=== PATIENT | female | born 1980 | race Caucasian/White ===

== ENCOUNTER 2019-06-15 19:24 | Emergency (ER) | payer MEDICAID, SELFPAY ==
[2019-06-15 19:25] VITALS: BP 105/77; PULSE 60; RESP 18; TEMP 36.7; O2SAT 100; BMI 28.0
[2019-06-15] MEDS: Ondansetron 4 MG/2 ML Vial IV (22:05)
[2019-06-15] MEDS: 0.9% Normal Saline 1,000 ML 1000 ML IV (22:05)
[2019-06-15 22:14] LABS: Absolute Lymphocyte Count 2.79 X10^3/uL (0.83-4.51); Absolute Neutrophil Count 5.3 X10^3/uL (2.0-7.7); Basophil# 0.03 X10^3/uL; Basophil% 0.3 % (0-1); Eosinophil# 0.31 X10^3/uL; Eosinophils% 3.4 % (0-5); Hematocrit 40.6 % (37-47); Hemoglobin 13.5 g/dL (12.0-15.0); Lymphocyte # 2.79 X10^3/ul (4.0); Lymphocyte % 30.3 % (19-41); Mean Corp Hgb Conc 33.3 g/dL (32-36); Mean Corpuscular Hgb 32.4 pg (27.0-32.0); Mean Corpuscular Volume 97.4 fL (81-99); Monocyte# 0.78 X10^3/uL; Monocyte% 8.5 % (0-10); NRBC Flagged by Analyzer 0 % (0-5); Neutrophil # 5.28 X10^3/uL (2.7-7.7); Neutrophil % 57.2 % (47-70); Platelet Count 207 K/mm3 (150-450); RBC Distribution Width SD 43.5 fl (35.1-43.9); Red Blood Count 4.17 M/mm3 (4.2-5.4); White Blood Count 9.2 K/mm3 (4.4-11.0)
[2019-06-15 22:34] VITALS: RESP 18
[2019-06-15 22:53] LABS: Internal QC Validated? YES +Cl - CLEAR BKGD; Pregnancy, Serum, hCG Quali. NEGATIVE Negative
[2019-06-15 22:58] LABS: ALB/GLOB Ratio 1.1 RATIO (0.9-2.4); AST(SGOT) 22 U/L (15-37); Alanine Aminotransfer ALT/SGPT 31 U/L (13-56); Albumin, Serum 3.7 g/dL (3.2-5.0); Alkaline Phosphatase 95 U/L (45-117); Anion Gap 5 (5-15); BUN 13 mg/dL (7-18); BUN/Creat Ratio 18.5 RATIO (10-20); Calcium,Total 8.5 mg/dL (8.5-10.1); Chloride 106 mmol/L (98-107); EST Glomerular Filtration Rate 98 mL/min (>60); Est Glom Filt Rate - Afr Amer 119 mL/min (>60); Estimated Creatinine Clearance 104.93 ml/min; Globulin 3.5 g/dL (2.2-4.2); Glucose 88 mg/dL (74-106); Lipase 113 U/L (73-393); Protein, Total 7.2 g/dL (6.4-8.2); Sodium Level 140 mmol/L (136-145)
--- NOTE | 2019-06-15 23:17 | RAD_ITS ---
STUDY: X-RAY - ABDOMEN/PELVIS REASON FOR EXAM: Female, 38 years old. Left lower quadrant pain x2 days TECHNIQUE: Two portable AP supine views of the abdomen and pelvis. COMPARISON: None. FINDINGS: Normal visualized lung bases. There is an unremarkable bowel gas pattern. There is no demonstrated free abdominal air. The visualized liver, spleen and kidneys are grossly normal in size and morphology. Normal soft tissue structures. Normal visualized osseous structures. Intrauterine device projected over the pelvic midline. RAD/Abdomen Single View (Portable) IMPRESSION: Normal x-ray examination of the abdomen and pelvis. Electronically Signed: Maddi Ernandez MD at 23:42 EST , Service support ,
--- NOTE | 2019-06-16 00:05 | ED.DEP ---
ED Disposition - Plan for ED Patient: Instructions: ABDOMINAL PAIN, Unknown Cause, (Female) Prescriptions: Ondansetron [Zofran Odt] 4 mg PO Q8H PRN PRN #10 tablet PRN Reason: Nausea Referrals: Sherif Herron MD [Primary Care Provider] -
--- NOTE | 2019-06-16 00:08 | ED.VISSUMM ---
- ER Visit Summary Date of Service: 06/16/19 Chief Complaint: Abdominal pain History of Present Illness: The patient is a 38 F presenting with intermittent abdominal pain. She states this started on Wednesday. She states this started after eating hamburger and she was unsure if this was related to food poisoning. She has had nausea and vomiting x3. She denies diarrhea. She has had constipation. She denies urinary complaints. Denies possibility of . Denies fever. She has a history of C. difficile but denies any diarrhea. Physical Examination: Vitals are stable. Patient is afebrile. Alert no acute distress. HEENT exam is unremarkable. Neck is supple. Lungs are clear and equal bilaterally. Heart is regular rate and rhythm. Abdomen is soft nontender nondistended. No guarding or rebound Extremities are unremarkable. Skin is warm and dry. No focal neurologic deficit. Remainder of exam is unremarkable. Emergency Department Course and Treatment: Patient was given IV fluids, Zofran. CBC, chemistries unremarkable. Liver lipase are normal. hCG negative. On reevaluation, patient is mostly concerned about constipation. KUB was performed and is normal. She refused rectal exam. Her abdomen continues to be soft and nontender. She was given mag citrate for home. She is advised to follow-up with primary care physician. Advised return to ED for worsening complaints. Disposition: Discharge home Impression: Abdominal pain, constipation This note was generated with [employer] dictation software. It may contain incorrect words, spelling, and punctuation that were not noted in review of the chart prior to signing ED Disposition - Plan for ED Patient: Instructions: ABDOMINAL PAIN, Unknown Cause, (Female) Prescriptions: Ondansetron [Zofran Odt] 4 mg PO Q8H PRN PRN #10 tab PRN Reason: Nausea Prescription Printed Referrals: Sherif Herron MD [Primary Care Provider] -
[2019-06-16] MEDS: Magnesium Citrate 300 ML PO (00:21)
[2019-06-16 00:24] VITALS: BP 102/58; PULSE 56; RESP 16; O2SAT 97
== END 2019-06-16 00:25 | disposition home or self-care (01) ==
PROVIDERS: Emergency Provider Emergency Medicine; Family Provider Family Medicine; PCP Family Medicine
DX: K59.00 Constipation, unspecified (principal); R10.9 Unspecified abdominal pain
CPT/HCPCS: 74018; 80053; 83690; 84703; 85025; 96361; 96374; 99284; J7030; J2405

== ENCOUNTER 2019-12-11 08:31 | Emergency (ER) | payer MEDICAID, SELFPAY ==
[2019-12-11 08:32] VITALS: BP 112/89; PULSE 71; RESP 19; TEMP 36.4; O2SAT 100; BMI 29.7
--- NOTE | 2019-12-11 08:54 | ED.VIS.GEN ---
History of Present Illness Chief Complaint: Back Informant: Patient Onset: Yesterday Current Severity: Moderate Maximum Severity: Severe Narrative: Patient has been working physically quite a bit recently, she got her pool ready for the summer, she went back to work and she went back to working out after a few months off. She was bending down yesterday when she got back up she felt pain in her lower back. The pain radiates to the back of both legs, she does not have any bowel or bladder compromise she does not have urinary retention symptoms, she does not have saddle anesthesia. She has no fever chills or any other injury. Past Medical History - Allergies and Home Meds Allergies/Adverse Reactions: Allergies No Known Allergies Allergy (Verified 12/11/19 08:35) Primary Care Physician: Sherif Herron MD [Primary Care Provider] - Past Medical History: None Surgical History: no surgical history, - - D+C Smoking Status: Never smoker Review of Systems All systems negative except as indicated General: Denies: Fever Cardiovascular: Denies: Chest pain Respiratory: Denies: Dyspnea Gastrointestinal: Denies: Abdominal pain, Nausea Musculoskeletal: Reports: Back pain Skin: Denies: Rash Neurological: Denies: Weakness, Parasthesia, Numbness Endocrine: Denies: Polyuria Physical Exam Vital Signs/Narrative: Vital Signs Temp Pulse Resp BP Pulse Ox 12/11/19 08:32 97.6 F L 71 19 H 112/89 H 100 General: Well nourished, Well developed, Acute Distress ENT: Moist mucous membranes Cardiovascular: Regular rate Respiratory: No distress Abdomen: Soft, Nontender, Nondistended, No masses Back: - - There is mostly left paraspinal tenderness to palpation however there is some midline tenderness. Extremities: No edema, - - Negative straight leg test bilaterally. Negative for: Tenderness Skin: Normal color Neurological: - - Normal strength and sensation. Normal patellar and Achilles reflexes bilaterally. Normal plantar flexion and dorsiflexion of both feet and great toes. Diagnostic/Tx/Re-eval - Medical Decision Making At this time the patient does not meet criteria for cauda equina however I did mention to her that her symptoms are certainly concerning for a possible disc herniation. This could at some point progress but most likely it will get better. I warned her specifically if her pain gets much worse than now, if she has any paresthesias in her legs. If she has any weakness, foot drop any saddle anesthesia or any urinary retention symptoms she is to return right away. At this time I will treat her with analgesia. She will be discharged in the care of family. ED Disposition - Plan for ED Patient: Disposition: Home or Assisted Living Diagnosis: Lumbar strain Instructions: ED LUMBAR SPRAIN/STRAIN Prescriptions: Oxycodone HCl/Acetaminophen [Percocet 5/325] 1 tab PO Q4H PRN PRN 3 Days #16 tab PRN Reason: Pain Prescription Printed Referrals: Sherif Herron MD [Primary Care Provider] - 3-5 Days
[2019-12-11] MEDS: HYDROmorphone 1 MG/ML Syringe 2 MG IM (09:11)
== END 2019-12-11 09:42 | disposition home or self-care (01) ==
PROVIDERS: Emergency Provider Emergency Medicine; PCP Family Medicine
DX: S39.012A Strain of muscle, fascia and tendon of lower back, initial encounter (principal); X50.0XXA Overexertion from strenuous movement or load, initial encounter; Y93.89 Activity, other specified; Y92.008 Other place in unspecified non-institutional (private) residence as the place of occurrence of the external cause; Y99.8 Other external cause status
CPT/HCPCS: 96372; 99282

== ENCOUNTER → 2020-03-25 17:15 | Outpatient (CLI) | payer MEDICAID, SELFPAY | PROVIDERS: PCP Family Medicine; Referring Provider Physician Assistant; Visit Provider Physician Assistant | DX: Z20.828 Contact with and (suspected) exposure to other viral communicable diseases (principal) | CPT/HCPCS: 87635; C9803; U0003 ==

== ENCOUNTER 2021-05-21 10:47 | Emergency (ER) | payer MEDICAID, SELFPAY ==
[2021-05-21 10:48] VITALS: BP 115/83; PULSE 74; RESP 16; TEMP 36.4; O2SAT 100; BMI 33.1
[2021-05-21] MEDS: 0.9% Normal Saline 1,000 ML 999 ML IV (12:20)
[2021-05-21] MEDS: proCHLORPERazine 10 MG/2 ML Vial IV (12:21)
[2021-05-21] MEDS: Ketorolac 15 MG/ML Vial IV (12:22)
[2021-05-21] MEDS: DiphenhydrAMINE 50 MG/ML Syringe IV (13:03)
--- NOTE | 2021-05-21 13:28 | EDS_ITS ---
HPI History of Present Illness Chief Complaint: Headache Informant: patient Narrative Narrative: Patient is a 40-year-old female presenting with headache. Patient states she has had intermittent headaches all month. She also notes has had intermittent sore throat. The headache is on her temples and switches from her left and right sides. It is worse when she listens to loud noises or with bright lights. She also notes that she has had worsening nasal congestion, postnasal drip and sore throat. She is intermittently tried Tylenol and ibuprofen with no significant relief. She denies any neck stiffness, fever or chills. She denies any other complaints at this time. She states this is not the worst headache of her life. She believes she has had a head CT in the past. Denies any secondhand smoke exposure. Notes that her symptoms are worse at the end of the day. PFSH PFSH Medical History no medical history Home Medications sertraline 100 mg PO DAILY 07/13/15 [History Last Taken 07/11/15] cetirizine [Zyrtec] 10 mg PO DAILY #14 tab 05/21/21 [Rx Last Taken Unknown] fluticasone propionate [Flonase Allergy Relief] 1 spray INTRANASAL DAILY 14 Days #16 g 05/21/21 [Rx Last Taken Unknown] olanzapine 2.5 mg PO PRN PRN 05/21/21 [History Last Taken Unknown] Allergy/AdvReac Type Severity Reaction Status Date / Time prochlorperazine AdvReac Mild jittery Verified 05/21/21 13:29 [From Compazine] Social History Smoking Status: Never smoker ROS ROS ED Constitutional Constitutional ED: Denies chills or fever(s) Eyes Eyes: Reports other Details: Photophobia ; Denies blurry vision or change in vision ENT ENT ED: Reports sore throat and other Details: nasal congestion ; Denies ear pain or rhinorrhea Cardiovascular Cardiovascular: Denies chest pain or palpitations Respiratory/Chest Respiratory/Chest: Denies cough or dyspnea Gastrointestinal Gastrointestinal: Denies abdominal pain, nausea or vomiting Musculoskeletal Musculoskeletal: Denies myalgias Integumentary Denies rash Neurologic Neurologic: Reports headache(s); Denies weakness Psychiatric Psychiatric: Denies depression EXAM Physical Exam Const Vital Signs: 05/21/21 10:48 05/21/21 13:48 Temperature 97.5 F L Temperature Source Temporal Pulse Rate 74 90 Respiratory Rate 16 16 Blood Pressure 115/83 H 118/79 Blood Pressure Mean 93 Pulse Ox 100 99 Oxygen Delivery Method Room Air Positive well nourished and well developed General Appearance ED: well developed HEENT Reports normocephalic HEENT Narrative: Retraction of bilateral tympanic membranes. Panic membranes are clear. No air-fluid level appreciated. Boggy nasal mucosa. No sinus tenderness to palpation or overlying redness/erythema. No significant pha ryngeal erythema appreciated. Tonsils are normal in size. atraumatic Eyes PERRL and EOMs intact bilaterally Neck no lymphadenopathy, supple and no meningeal signs Resp normal respiratory effort and clear to auscultation bilaterally Cardio regular rate, regular rhythm and no murmurs GI non-tender and non-distended Auscultation: normoactive bowel sounds Palpation: soft Extremity normal to inspection and full ROM Neuro oriented x3, CN's II-XII intact bilaterally and no sensory deficits noted Sensorium / Orientation: awake and alert Gait (Neuro): normal gait Motor Exam: strength 5/5 throughout Psych mental status grossly normal Skin Lesions: no lesions Rashes: no rashes MDM MDM MDM Narrative Medical decision making narrative: Patient is evaluated for weeks of headache as well as sore throat. Patient has chronic nasal congestion and postnasal drip. I suspect she has a form of chronic sinusitis that is causing her presentation. She has a normal neurologic exam. I do not think she requires emergent imaging at this time. She does not have any severe symptoms concerning for an acute bacterial infection. She is given IV Toradol and Compazine. Patient did becomes very jittery and feels that she has to leave. I suspect she is having an extrapyramidal reaction to the Compazine and is given Benadryl. She does has improvement on reevaluation. She is given referral to ENT and started on Flonase and Zyrtec for her symptoms. Patient is given a work note for today and tomorrow. She is counseled on return precautions. Patient verbalizes agreement understand with this plan. Discharge Plan Triage Chief Complaint: Headache ED Provider: Destiny Harp Dx/Rx/DC Orders Clinical Impression: Sinus headache, Sinusitis Instructions: ED Sinus Headache, ED Sinusitis (No Antibiotics) Prescriptions: New fluticasone propionate [Flonase Allergy Relief] 50 mcg/actuation spray,suspension 1 spray intranasal DAILY 14 Days Qty: 16 RF: 0 cetirizine [Zyrtec] 10 mg tablet 10 mg PO DAILY Qty: 14 RF: 0 No Action sertraline 50 MG tablet 100 mg PO DAILY RF: 0 olanzapine 2.5 mg tablet 2.5 mg PO PRN PRN (Reason: Anxiety) RF: 0 Stand Alone Forms: ED Work / School Excuse Primary Care Provider: Herlinda Schneider Referrals: Toro Blackman MD [STAFF PHYSICIAN] - As soon as possible Herlinda Schneider PA [Primary Care Provider] - Disposition Disposition: Home, Self Care Discharge Date/Time: 05/21/21 13:49
[2021-05-21 13:48] VITALS: BP 118/79; PULSE 90; RESP 16; O2SAT 99
== END 2021-05-21 13:49 | disposition home or self-care (01) ==
PROVIDERS: Emergency Provider Emergency Medicine; PCP Physician Assistant
DX: J32.9 Chronic sinusitis, unspecified (principal)
CPT/HCPCS: 96361; 96374; 96375; 99283; J7030; A4216

== ENCOUNTER 2024-09-09 10:25 | Emergency (ER) | payer OTHER, SELFPAY ==
[2024-09-09 10:25] VITALS: BP 154/83; PULSE 65; RESP 15; TEMP 36.3; O2SAT 100; BMI 31.3
--- NOTE | 2024-09-09 10:37 | CT_ITS ---
EXAM: BRAIN/HEAD WITHOUT CONTRAST CLINICAL HISTORY: 44-year-old female, headache. COMPARISON: None. TECHNIQUE: Routine CT imaging of the head without IV contrast. Additional multiplanar reformats were obtained. Dose reduction techniques were used including intermediate exposure control (AEC),iterative reconstruction technique, and/or mA and/or KV dose adjustments based on patient's size. FINDINGS: The salas-white matter interfaces are maintained. No intracranial hemorrhage, herniation or mass effect. No ventriculomegaly. Incidental cavum septum pellucidum. The basal cisterns are patent. Moderate right and mild left mucosal thickening of the maxillary sinuses. The visualized paranasal sinuses and mastoids are otherwise clear. The bilateral orbits are unremarkable. No calvarial fracture or scalp laceration. CT/Brain/Head without Contrast IMPRESSION: Normal CT head. Reading Location: [id number]
--- NOTE | 2024-09-09 10:37 | CT_ITS ---
PROCEDURE: CTA HEAD AND NECK W/ CONTRAST REASON FOR EXAM: 44-year-old female, headache. TECHNIQUE: CTA imaging of the head and neck from the aortic arch to the skull vertex with intravenous contrast. 3D reconstructions. CONTRAST: Isovue-300 COMPARISON: Same-day CT head. FINDINGS: See separately dictated same day CT head for discussion of nonvascular findings. The aortic arch and its branch vessels are normal caliber without focal stenosis or occlusion. No significant calcific plaque. The left and right common carotid, internal and external cervical external carotid arteries are widely patent without calcific plaque, focal stenosis or occlusion. There is 0% stenosis by NASCET criteria bilaterally. The bilateral vertebral arteries are widely patent. No intracranial aneurysms or large vascular malformations are identified. The anterior, middle and posterior cerebral arteries are patent without focal stenosis or occlusion. No calcific plaque. Other major branches of the posterior circulation: Unremarkable. Major venous structures: Unremarkable. Other findings: No lymphadenopathy. Lung apices are clear. Bones are unremarkable. CT/CTA Head AND Neck W/ Contrast IMPRESSION: Unremarkable CTA head and neck without intracranial aneurysm, AVM, stenosis or occlusion. 0% stenosis of the bilateral carotid arteries by NASCET criteria. One or more dose reduction techniques were used (e.g., Automated exposure contr ol, adjustment of the mA and/or kV according to patient size, use of iterative reconstruction technique). Reading Location: [id number]
--- NOTE | 2024-09-09 10:39 | EX.ED.VIS.HA ---
HPI History of Present Illness Chief Complaint: Headache Detail of Chief Complaint: Headache Informant: patient Narrative Narrative: Patient presents with headache that started yesterday around 2 PM. Patient works as a hairdresser and she states that she was in the bathroom and it started suddenly. Involved both sides of the head described a 10 out of 10 pain that was throbbing. She took some ibuprofen and was able to finish 2 clients but then driving home she was nauseated. Headache did get a little bit better but had another X worsening exacerbation last night before bed. She continues to have the headache. She does complain of sounds bothering her as well as may be some mild photophobia. She tells me she has had similar headaches in the past x 4. No family history of brain tumors or aneurysms. She denies recent illness. [facility] Medical History (Updated 09/09/24 @ 11:[address] Ant Colvin DO) Anxiety COVID-19 Home Medications ?Medication ?Instructions ?Recorded ?Last Taken ?Type sertraline 50 mg tablet 100 mg PO DAILY 07/13/15 07/11/15 History cetirizine 10 mg tablet (Zyrtec) 10 mg PO DAILY #14 tabs 05/21/21 Unknown Rx fluticasone propionate 50 1 spray intranasal DAILY 2 weeks 05/21/21 Unknown Rx mcg/actuation nasal #16 grams spray,suspension (Flonase Allergy Relief) olanzapine 2.5 mg tablet 2.5 mg PO PRN PRN Anxiety 05/21/21 Unknown History dexamethasone 4 mg tablet 4 mg PO DAILY #5 tabs 07/09/21 Unknown Rx (Decadron) Allergy/AdvReac Type Severity Reaction Status Date / Time prochlorperazine (From AdvReac Mild jittery Verified 09/09/24 10:27 Compazine) Surgical History (Updated 09/09/24 @ 10:35 by Elke Gray) History of colonoscopy Social History Smoking Status: Never smoker ROS ROS ED Review of Systems ROS Unobtainable: other Constitutional Constitutional ED: Denies chills, fever(s), lethargy, sweats or weight loss Eyes Eyes: Denies blurry vision, change in vision or diplopia ENT ENT ED: Denies rhinorrhea or sore throat Cardiovascular Cardiovascular: Denies chest pain, orthopnea or racing heartbeat Respiratory/Chest Respiratory/Chest: Denies cough, dyspnea, dyspnea on exertion, orthopnea or sputum Gastrointestinal Gastrointestinal: Reports nausea; Denies abdominal pain, diarrhea or vomiting Genitourinary Genitourinary ED: Denies dysuria, hematuria or urinary frequency Musculoskeletal Musculoskeletal: Denies arthralgias, back pain, myalgias or neck pain Integumentary Denies abscess, Abrasions or rash Neurologic Neurologic: Reports headache(s); Denies weakness Psychiatric Psychiatric: Denies anxiety, depression or suicidal thoughts Endocrine Endocrinology: Denies polydipsia, polyphagia or polyuria Hematologic/Lymphatic Hematologic/Lymphatic: Denies easy bleeding, easy bruising or lymphadenopathy Allergic/Immunologic Allergic/Immunologic ED: Denies mouth swelling, tongue swelling or urticaria EXAM Physical Exam Const Vital Signs: 09/09/24 10:25 Temperature 97.4 F L Temperature Source Temporal Pulse Rate 65 Respiratory Rate 15 Blood Pressure 154/83 H Blood Pressure Mean 106 Pulse Ox 100 Oxygen Delivery Method Room Air Positive well nourished and well developed General Appearance ED: well developed and NAD HEENT Reports TM's clear and moist mucous membranes normocephalic and atraumatic; Negative for trauma or tenderness Tympanic Membrane ED: Yes TM's clear Eyes PERRL and EOMs intact bilaterally General Eye ED: Negative for pale conjunctiva or scleral icterus Neck no lymphadenopathy, supple and no JVD General: Negative for tenderness Chest Wall inspection of chest normal and palpation of chest normal Chest: Negative for tenderness Resp normal respiratory effort and clear to auscultation bilaterally Effort and Inspection: Negative for respiratory distress or pain with movement Auscultation: Negative for rhonchi, wheezes or diminished lung sounds Cardio regular rate, regular rhythm, S1 normal heart sound, S2 normal heart sound and no murmurs Peripheral Pulses: pulses 2+ throughout GI normal to inspection, nondistended, normoactive bowel sounds, soft to palpation, non-tender, non-distended and no masses Back/Spine no CVA tenderness and no thoracic nor lumbar tenderness Extremity normal to inspection General Extremety ED: Negative for edema General Extremity: Negative for edema Neuro oriented x3, CN's II-XII intact bilaterally, no sensory deficits noted and gait normal Neuro Narrative: Finger-nose and heel bateman testing within normal limits, negative Romberg, negative for drift, fundi benign Sensorium / Orientation: awake, alert, oriented to person, oriented to place and oriented to time Motor Exam: strength 5/5 throughout and strength abnormal Psych mental status grossly normal Skin no rashes or lesions noted and no wounds MDM MDM MDM Narrative Medical decision making narrative: Patient with sudden onset of severe headache that started yesterday with nausea and some mild photophobia. Similar headaches in the past x 4. Continues to have severe headache. In the differential would be intracranial hemorrhage versus migraine or stress type headache. Clinically she looks well. I did obtain a CT scan of the brain without contrast that was unremarkable. CTA of head and neck showed no evidence of aneurysm or dissection. IV line was established and she was given a liter Mustain fluid bolus and was treated with Reglan, Benadryl, and Toradol and her headache improved significantly is now a 2 out of 10 compared to a 10 out of 10 when she came in. This point I suspect likely migraine. Patient advised to follow-up with primary care physician within next 3 to 5 days. Advised to rest. Advised to push fluids Radiography Diagnostic Testing: Clinical Impression(s) from Imaging Studies Brain CT 09/09/24 10:37 IMPRESSION: Normal CT head. Reading Location: [facility] Head/Neck CTA 09/09/24 10:37 IMPRESSION: Unremarkable CTA head and neck without intracranial aneurysm, AVM, stenosis or occlusion. 0% stenosis of the bilateral carotid arteries by NASCET criteria. One or more dose reduction techniques were used (e.g., Automated exposure control, adjustment of the mA and/or kV according to patient size, use of iterative reconstruction technique). Reading Location: [facility] Discharge Plan Triage Chief Complaint: Headache ED Provider: Ant Colvin Dx/Rx/DC Orders Clinical Impression: Headache Instructions: ED, Migraine (Classical) Prescriptions: No Action dexamethasone [Decadron] 4 mg tablet 4 mg PO DAILY Qty: 5 0RF sertraline 50 MG tablet 100 mg PO DAILY olanzapine 2.5 mg tablet 2.5 mg PO PRN PRN (Reason: Anxiety) fluticasone propionate [Flonase Allergy Relief] 50 mcg/actuation spray,suspension 1 spray intranasal DAILY 14 Days Qty: 16 0RF Rx Instructions: administer into each nostril cetirizine [Zyrtec] 10 mg tablet 10 mg PO DAILY Qty: 14 0RF Primary Care Provider: Care Physician,No Primary Referrals: Herlinda Schneider PA [Non-Staff] - 3-5 Days Print Language: Chadian Disposition Disposition: Home, Self Care
[2024-09-09] MEDS: 0.9% Normal Saline (1000mL) 1,000 ML 1000 ML IV (11:19)
[2024-09-09] MEDS: DiphenhydrAMINE 50 MG/ML Syringe 25 MG IV (11:31)
[2024-09-09] MEDS: Ketorolac 30 MG/ML Syringe IV (11:31)
[2024-09-09] MEDS: Metoclopramide 10 MG/2 ML Vial IV (11:32)
[2024-09-09 12:05] VITALS: BP 154/83; PULSE 65; RESP 15; TEMP 36.3; O2SAT 100
== END 2024-09-09 12:06 | disposition home or self-care (01) ==
PROVIDERS: Emergency Provider Emergency Medicine; Visit Provider Emergency Medicine
DX: R51.9 Headache, unspecified (principal); R11.0 Nausea; Z86.16 Personal history of COVID-19; F41.9 Anxiety disorder, unspecified
CPT/HCPCS: 70450; 70496; 70498; 96361; 96374; 96375; 99283; Q9967; A4216

== ENCOUNTER → 2024-12-21 | Outpatient (CLI) | payer OTHER, SELFPAY ==
[2024-12-26 10:08] LABS: HPV APTIMA, High Risk Negative (Negative)
== END | disposition home or self-care (01) ==
LOC: LABSPEC 14:13
PROVIDERS: Referring Provider Nurse Practitioner Family; Visit Provider Nurse Practitioner Family
DX: Z12.4 Encounter for screening for malignant neoplasm of cervix (principal)
CPT/HCPCS: 87624; 88175; G0145